=== PATIENT | male | born 1990 | race Caucasian/White ===

== ENCOUNTER 2025-09-20 12:01 | Emergency (ER) | payer OTHER ==
[~2025-09-20] VITALS: Ht 170.2 cm; Wt 62.0 kg
[2025-09-20 12:24] VITALS: TEMP 98.3
[2025-09-20 15:51] VITALS: BP 107/74; PULSE 82; RESP 16; O2SAT 99
== END 2025-09-20 15:53 ==
LOC: EMS 12:06
DX: S02.40FA Zygomatic fracture, left side, initial encounter for closed fracture (principal); S09.90XA Unspecified injury of head, initial encounter; Y04.0XXA Assault by unarmed brawl or fight, initial encounter; Y93.89 Activity, other specified; Y92.89 Other specified places as the place of occurrence of the external cause; Y99.8 Other external cause status
CPT/HCPCS: 70450; 70486; 99284